=== PATIENT | female | born 1940 | race Caucasian/White ===

== ENCOUNTER 2016-10-17 12:21 | Emergency (ER) | payer MEDICARE ==
--- NOTE | 2016-10-17 13:11 | RAD ---
THREE VIEWS LUMBAR SPINE: History: Fall with low back and left hip. FINDINGS: There is mild superior endplate irregularity of L2 without significant height loss. Mild multilevel endplate degenerative change of the lumbar spine is seen. There is no significant subluxation. Patie nt is rotated on the frontal view limiting evaluation of the alignment. Scattered vascular disease is present within the abdomen. Partially imaged left hip hardware is seen . IMPRESSION: Mild superior endplate irregularity of L2, age indeterminate. Correlate clinically. POS: [facility]
--- NOTE | 2016-10-17 13:51 | RAD ---
AP PELVIS: HISTORY: Left hip pain, fall. FINDINGS/IMPRESSION: There are postop changes of an internally fixed intratrochanteric fracture since the previous exam o f 04/12/14. There is a new fracture involving the left inferior pubic ramus. POS: [facility]
--- NOTE | 2016-10-17 13:55 | RAD ---
LEFT HIP 2 VIEWS: HISTORY: Fall, left hip pain. FINDINGS/IMPRESSION: There are postop changes of a healed intratrochanteric fracture and metallic hardware in good positi on and alignment. There are also plate and screws in the distal left femur. The left femur is othe rwise intact. There is a mew fracture involving the left inferior pubic ramus. POS: [facility]
== END 2016-10-17 13:45 | disposition home or self-care (01) ==
LOC: BURERS 12:21
DX: S32.592A Other specified fracture of left pubis, initial encounter for closed fracture (principal); E11.9 Type 2 diabetes mellitus without complications; E78.5 Hyperlipidemia, unspecified; I10 Essential (primary) hypertension; F32.9 Major depressive disorder, single episode, unspecified; F41.9 Anxiety disorder, unspecified; Z79.2 Long term (current) use of antibiotics; Z79.4 Long term (current) use of insulin; Z79.82 Long term (current) use of aspirin; Z79.899 Other long term (current) drug therapy; W17.89XA Other fall from one level to another, initial encounter
CPT/HCPCS: 72100; 72170

== ENCOUNTER 2019-05-17 15:45 | Inpatient (IN) | payer MEDICARE ==
[2019-05-17] MEDS ORDERED: Polyethylene Glycol 3350 17 GM Packet PO PRN (16:32)
[2019-05-17] MEDS ORDERED: Dextrose 5% in Water 1,000 ML IV PRN (16:40)
[2019-05-17] MEDS ORDERED: Dextrose 50% Abboject 50 ML SYRINGE SLOW IVP PRN (16:40)
[2019-05-17] MEDS ORDERED: Lidocaine Patch Removal TOP PRN (16:55)
[2019-05-17 17:25] VITALS: BMI 25.2
[2019-05-17] MEDS: HumaLOG 300 UNITS/3 ML VIAL SC PRN ×2 (18:10→21:47)
[2019-05-17] MEDS ORDERED: Calcium Carbonate + Vit D 500 MG TAB PO SCH (21:00)
[2019-05-17] MEDS ORDERED: Lidocaine 5% Patch TD PRN (21:00)
--- NOTE | 2019-05-17 21:11 | HP ---
CHIEF COMPLAINT: Need for skilled rehab. HISTORY OF PRESENT ILLNESS: Ms. Peña is a 78-year-old female with past medical history of osteoporosis, rheumatoid arthritis, on chronic steroids and Humira, who presented to the emergency department with severe acute low back pain and was found to have L1 compression fracture shown by lumbar CT with mild burst. She had this back pain for approximately 1 week that was severe and during her hospitalization at [facility], May 12 through today, she was evaluated by Neurosurgery and recommended a TLSO brace. She was participating in physical therapy there and has been transferred here for further PT and OT. During her hospitalization, the CT scan also showed an exophytic right renal lesion. A nonemergent right renal ultrasound was recommended to be followed by her primary care physician. She was discharged with the TLSO brace to be worn while upright and Tylenol, lidocaine patch for pain control along with [place]. PAST MEDICAL HISTORY: 1. L1 burst compression fracture as above. 2. Right renal exophytic lesion on CT scan as above. 3. Osteoporosis. 4. Rheumatoid arthritis, on chronic steroids and Humira. 5. Osteopenia with moderate lumbar spondylosis. 6. Type 2 diabetes, insulin dependent. 7. Hyperlipidemia. 8. Hypertension. 9. Hypothyroidism. 10. Degenerative joint disease. 11. Hyponatremia. 12. Urinary retention. 13. Pulmonary fibrosis, thought to be secondary to rheumatoid arthritis, followed by Pulmonology and confirmed with PFTs. 14. 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 15. History of ischemic colitis. PAST SURGICAL HISTORY: 1. Tonsillectomy. 2. Left femur surgery. 3. Ankle surgery. 4. Left hip surgery. 5. Thyroid biopsy. 6. Partial colectomy. ALLERGIES: CIPRO AND LEVAQUIN. FAMILY HISTORY: Denies heart disease or malignancy. SOCIAL HISTORY: Lives at home with her . Ambulates with walker assist. Full code. Makes her own decisions with family help. HOME MEDICATIONS: Please see transfer MAR. REVIEW OF SYSTEMS: All other review of systems was reviewed and found to be negative, except for diarrhea. PHYSICAL EXAMINATION: VITAL SIGNS: Temperature 98.2, pulse 69, respirations 18, O2 saturation 96% on room air, blood pressure 110/66. GENERAL: Well-developed, overweight female, pleasant, alert and oriented x3, in no acute distress. HEENT: Pupils equally round and reactive to light and accommodation, extraocular muscles intact. Nares are patent without discharge. Tongue protrudes in midline. NECK: Supple without lymphadenopathy, thyromegaly, JVD, or bruit. HEART: Regular rate and rhythm. Normal S1, S2. No murmurs, clicks, rubs, or gallops. LUNGS: Good air entry throughout with bibasilar coarse crackles, left greater than right. ABDOMEN: Positive bowel sounds in all four quadrants. Soft, nontender, and nondistended. No masses, guarding, or rebound tenderness. MUSCULOSKELETAL: Tenderness to palpation, mid limb or in area of fracture. EXTREMITIES: No cyanosis or clubbing. 1 mm nonpitting ankle edema. NEUROLOGIC: Cranial nerves 2 through 12 grossly intact without focal deficits. LABORATORY DATA: Last CBC, May 17, which was this a.m., with white count 10.7 and 69% neutrophils, 18% lymphocytes, hemoglobin 12.6, hematocrit 37.6. Sodium 135, potassium 4.2, chloride 97, BUN 20, creatinine 0.69, glucose 171, calcium 9.9. IMAGING STUDIES: 1. Lumbar spine CT scan from May 12 showed mild burst fracture of L1. 2. Exophytic right renal lesion, moderate lumbar spondylosis, severe osteopenia. ASSESSMENT AND PLAN: 1. L1 burst fracture. The patient will be admitted to the fpc unit here for physical and occupational therapy to be using a TLSO brace while upright, followed outpatient by Dr. Mcmullen, to be seen by him in approximately 2 weeks. She will probably be in this brace for about 6 weeks. We will give pain control with her lidocaine patch, Tylenol, and [place] for severe pain. 2. Rheumatoid arthritis, steroid dependent, Humira dependent. We will continue her prednisone. 3. Osteoporosis. The patient will be continued on her calcium, vitamin D, and a multivitamin. 4. Insulin-dependent diabetes mellitus. Her home regimen will be continued and we will place her on Accu-Cheks q.a.c. and at bedtime with Humalog sliding scale, mild and bedtime algorithm and adjust accordingly. 5. Hyperlipidemia. The patient will be continued on her statin. 6. Hypothyroidism. The patient will be continued on her levothyroxine. 7. Gastroesophageal reflux disease. The patient will be continued on her Protonix. 8. Depression. The patient will be continued on her Celexa. 9. Prophylaxis. The patient is already on a PPI. We will add SCDs. 10. Code status, full code. Job ID: [id number]
[2019-05-17] MEDS: Docusate 100 MG CAP PO SCH (21:42)
[2019-05-17] MEDS: predniSONE 10 MG TAB PO SCH (21:42)
[2019-05-17] MEDS: Lantus 1000 UNITS/10 ML VIAL SC SCH (21:48)
[2019-05-17] MEDS: Simvastatin 5 MG TAB PO SCH (21:55)
[2019-05-17] MEDS: Acetaminophen 325 MG TAB PO SCH (21:56)
[2019-05-17] MEDS: DICLOFENAC SODIUM TOP SCH (21:56)
[2019-05-17] MEDS: Lisinopril 10 MG TAB PO SCH (22:04)
[2019-05-17] MEDS: ALPRAZolam 0.5 MG TAB PO PRN (22:05)
[2019-05-18] MEDS: Levothyroxine Sodium 50 MCG TAB PO SCH (06:06)
[2019-05-18] MEDS: HYDROcodone/Acetaminophen 5/325 mg Tablet PO PRN (07:32)
[2019-05-18] MEDS: metFORMIN 500 MG TAB PO SCH (08:53)
[2019-05-18] MEDS: Multivit, Therapeutic 1 TAB PO SCH (08:53)
[2019-05-18] MEDS: Docusate 100 MG CAP PO SCH ×3 (08:53→22:14)
[2019-05-18] MEDS: Calcium Carbonate + Vit D 500 MG TAB PO SCH ×2 (08:54→22:06)
[2019-05-18] MEDS: Acetaminophen 325 MG TAB PO SCH ×3 (08:54→22:05)
[2019-05-18] MEDS: Citalopram 20 MG TAB PO SCH (08:55)
[2019-05-18] MEDS: predniSONE 10 MG TAB PO SCH ×2 (08:55→22:06)
[2019-05-18] MEDS: DICLOFENAC SODIUM TOP SCH ×2 (08:55→22:14)
[2019-05-18] MEDS: (Liraglutide [Victoza 2-Pak] 1.8 MG) SC SCH (08:55)
[2019-05-18] MEDS: HumaLOG 300 UNITS/3 ML VIAL SC PRN ×2 (18:01→22:22)
[2019-05-18] MEDS: Lisinopril 10 MG TAB PO SCH (22:06)
[2019-05-18] MEDS: Simvastatin 5 MG TAB PO SCH (22:07)
[2019-05-18] MEDS: Lantus 1000 UNITS/10 ML VIAL SC SCH (22:21)
[2019-05-19] MEDS: Levothyroxine Sodium 50 MCG TAB PO SCH (05:09)
[2019-05-19] MEDS: Citalopram 20 MG TAB PO SCH (09:32)
[2019-05-19] MEDS: Docusate 100 MG CAP PO SCH ×2 (09:33→20:41)
[2019-05-19] MEDS: metFORMIN 500 MG TAB PO SCH (09:33)
[2019-05-19] MEDS: predniSONE 10 MG TAB PO SCH ×2 (09:33→20:38)
[2019-05-19] MEDS: Multivit, Therapeutic 1 TAB PO SCH (09:33)
[2019-05-19] MEDS: DICLOFENAC SODIUM TOP SCH ×2 (09:34→20:41)
[2019-05-19] MEDS: Acetaminophen 325 MG TAB PO SCH ×3 (09:34→20:38)
[2019-05-19] MEDS: Calcium Carbonate + Vit D 500 MG TAB PO SCH ×2 (09:35→20:42)
[2019-05-19] MEDS: (Liraglutide [Victoza 2-Pak] 1.8 MG) SC SCH (09:41)
[2019-05-19] MEDS: Lisinopril 10 MG TAB PO SCH (20:42)
[2019-05-19] MEDS: Simvastatin 5 MG TAB PO SCH (20:42)
[2019-05-19] MEDS: ALPRAZolam 0.5 MG TAB PO PRN (20:43)
[2019-05-19] MEDS: Lantus 1000 UNITS/10 ML VIAL SC SCH (20:45)
[2019-05-19] MEDS: HumaLOG 300 UNITS/3 ML VIAL SC PRN (20:47)
[2019-05-20] MEDS: Levothyroxine Sodium 50 MCG TAB PO SCH (04:56)
[2019-05-20] MEDS: (Liraglutide [Victoza 2-Pak] 1.8 MG) SC SCH (08:36)
[2019-05-20] MEDS: Acetaminophen 325 MG TAB PO SCH ×3 (08:43→20:36)
[2019-05-20] MEDS: metFORMIN 500 MG TAB PO SCH (08:44)
[2019-05-20] MEDS: Docusate 100 MG CAP PO SCH ×2 (08:44→20:36)
[2019-05-20] MEDS: Calcium Carbonate + Vit D 500 MG TAB PO SCH ×2 (08:44→20:38)
[2019-05-20] MEDS: predniSONE 10 MG TAB PO SCH ×2 (08:45→20:37)
[2019-05-20] MEDS: Citalopram 20 MG TAB PO SCH (08:46)
[2019-05-20] MEDS: Multivit, Therapeutic 1 TAB PO SCH (08:46)
[2019-05-20] MEDS: DICLOFENAC SODIUM TOP SCH ×2 (08:47→20:35)
[2019-05-20] MEDS: HYDROcodone/Acetaminophen 5/325 mg Tablet PO PRN (08:50)
[2019-05-20 12:10] LABS: Bilirubin Negative (Negative); Blood, Urine Moderate (Negative); Clarity Turbid (Clear); Glucose, Urine (Dipstick) Negative (Negative); Leukocyte Moderate (Negative); Nitrite Positive (Negative); Protein, Urine (Dipstick) 100 mg/dL (Neg-Trace); Urobilinogen 0.2 mg/dL (Less than 2)
[2019-05-20 12:29] LABS: Bacteria/HPF 3+ HPF (None Seen); Oval Fat Bodies/HPF 1+ HPF (None Seen); Squamous Epithelial 0-3 HPF (0-3); Transitional Epithelial 0-3 HPF (None Seen); WBC/HPF Greater Than 50 HPF (0-3)
[2019-05-20] MEDS: Sulfameth/Trimethoprim DS 800-160mg TAB PO SCH (20:36)
[2019-05-20] MEDS: Simvastatin 5 MG TAB PO SCH (20:38)
[2019-05-20] MEDS: ALPRAZolam 0.5 MG TAB PO PRN (20:39)
[2019-05-20] MEDS: Lisinopril 10 MG TAB PO SCH (20:47)
[2019-05-20] MEDS: Lantus 1000 UNITS/10 ML VIAL SC SCH (20:50)
[2019-05-20] MEDS: HumaLOG 300 UNITS/3 ML VIAL SC PRN (20:58)
[2019-05-21] MEDS: Levothyroxine Sodium 50 MCG TAB PO SCH (05:09)
[2019-05-21] MEDS: Docusate 100 MG CAP PO SCH ×2 (08:33→21:17)
[2019-05-21] MEDS: metFORMIN 500 MG TAB PO SCH (08:33)
[2019-05-21] MEDS: Multivit, Therapeutic 1 TAB PO SCH (08:34)
[2019-05-21] MEDS: Sulfameth/Trimethoprim DS 800-160mg TAB PO SCH ×2 (08:35→21:14)
[2019-05-21] MEDS: Calcium Carbonate + Vit D 500 MG TAB PO SCH ×2 (08:35→21:15)
[2019-05-21] MEDS: Citalopram 20 MG TAB PO SCH (08:35)
[2019-05-21] MEDS: Acetaminophen 325 MG TAB PO SCH ×3 (08:35→21:14)
[2019-05-21] MEDS: predniSONE 10 MG TAB PO SCH ×2 (08:35→21:15)
[2019-05-21] MEDS: (Liraglutide [Victoza 2-Pak] 1.8 MG) SC SCH (08:36)
[2019-05-21] MEDS: DICLOFENAC SODIUM TOP SCH ×2 (08:36→21:18)
[2019-05-21] MEDS: ALPRAZolam 0.5 MG TAB PO SCH (21:14)
[2019-05-21] MEDS: Simvastatin 5 MG TAB PO SCH (21:15)
[2019-05-21] MEDS: Lisinopril 10 MG TAB PO SCH (21:15)
[2019-05-21] MEDS: Lantus 1000 UNITS/10 ML VIAL SC SCH (21:16)
[2019-05-21] MEDS: HumaLOG 300 UNITS/3 ML VIAL SC PRN (21:18)
[2019-05-22] MEDS: Levothyroxine Sodium 50 MCG TAB PO SCH (05:59)
[2019-05-22] MEDS: predniSONE 10 MG TAB PO SCH ×2 (08:49→20:31)
[2019-05-22] MEDS: Sulfameth/Trimethoprim DS 800-160mg TAB PO SCH ×2 (08:51→20:32)
[2019-05-22] MEDS: metFORMIN 500 MG TAB PO SCH (08:51)
[2019-05-22] MEDS: Calcium Carbonate + Vit D 500 MG TAB PO SCH ×2 (08:51→20:28)
[2019-05-22] MEDS: Acetaminophen 325 MG TAB PO SCH ×3 (08:51→20:28)
[2019-05-22] MEDS: Docusate 100 MG CAP PO SCH ×2 (08:51→20:42)
[2019-05-22] MEDS: Citalopram 20 MG TAB PO SCH (08:51)
[2019-05-22] MEDS: Multivit, Therapeutic 1 TAB PO SCH (08:51)
[2019-05-22] MEDS: DICLOFENAC SODIUM TOP SCH ×2 (08:53→20:42)
[2019-05-22] MEDS: (Liraglutide [Victoza 2-Pak] 1.8 MG) SC SCH (08:55)
[2019-05-22] MEDS: Metamucil PACK PO SCH (10:38)
[2019-05-22] MEDS: Simvastatin 5 MG TAB PO SCH (20:29)
[2019-05-22] MEDS: ALPRAZolam 0.5 MG TAB PO SCH (20:29)
[2019-05-22] MEDS: Lisinopril 10 MG TAB PO SCH (20:32)
[2019-05-22] MEDS: Lantus 1000 UNITS/10 ML VIAL SC SCH (20:38)
[2019-05-23] MEDS: Levothyroxine Sodium 50 MCG TAB PO SCH (05:44)
[2019-05-23] MEDS: Citalopram 20 MG TAB PO SCH (09:12)
[2019-05-23] MEDS: predniSONE 10 MG TAB PO SCH (09:13)
[2019-05-23] MEDS: HYDROcodone/Acetaminophen 5/325 mg Tablet PO PRN (09:14)
[2019-05-23] MEDS: Calcium Carbonate + Vit D 500 MG TAB PO SCH ×2 (09:15→20:07)
[2019-05-23] MEDS: Acetaminophen 325 MG TAB PO SCH ×3 (09:15→20:07)
[2019-05-23] MEDS: Sulfameth/Trimethoprim DS 800-160mg TAB PO SCH ×2 (09:15→20:07)
[2019-05-23] MEDS: Multivit, Therapeutic 1 TAB PO SCH (09:15)
[2019-05-23] MEDS: metFORMIN 500 MG TAB PO SCH (09:15)
[2019-05-23] MEDS: Docusate 100 MG CAP PO SCH ×2 (09:17→20:08)
[2019-05-23] MEDS: Metamucil PACK PO SCH (09:18)
[2019-05-23] MEDS: (Liraglutide [Victoza 2-Pak] 1.8 MG) SC SCH (09:18)
[2019-05-23] MEDS: DICLOFENAC SODIUM TOP SCH ×2 (09:24→20:30)
[2019-05-23] MEDS: HumaLOG 300 UNITS/3 ML VIAL SC PRN ×2 (12:41→20:13)
[2019-05-23] MEDS: Simvastatin 5 MG TAB PO SCH (20:07)
[2019-05-23] MEDS: Lisinopril 10 MG TAB PO SCH (20:07)
[2019-05-23] MEDS: ALPRAZolam 0.5 MG TAB PO SCH (20:07)
[2019-05-23] MEDS: Lantus 1000 UNITS/10 ML VIAL SC SCH (20:08)
[2019-05-24] MEDS: Levothyroxine Sodium 50 MCG TAB PO SCH (06:23)
[2019-05-24] MEDS ORDERED: predniSONE 10 MG TAB PO SCH (09:00)
[2019-05-24] MEDS: HYDROcodone/Acetaminophen 5/325 mg Tablet PO PRN (09:54)
[2019-05-24] MEDS: Calcium Carbonate + Vit D 500 MG TAB PO SCH ×2 (09:56→21:19)
[2019-05-24] MEDS: Sulfameth/Trimethoprim DS 800-160mg TAB PO SCH ×2 (09:56→21:19)
[2019-05-24] MEDS: metFORMIN 500 MG TAB PO SCH (09:56)
[2019-05-24] MEDS: Multivit, Therapeutic 1 TAB PO SCH (09:56)
[2019-05-24] MEDS: Citalopram 20 MG TAB PO SCH (09:57)
[2019-05-24] MEDS: Acetaminophen 325 MG TAB PO SCH ×3 (09:58→21:19)
[2019-05-24] MEDS: Docusate 100 MG CAP PO SCH ×2 (09:58→21:19)
[2019-05-24] MEDS: DICLOFENAC SODIUM TOP SCH (09:58)
[2019-05-24] MEDS: Metamucil PACK PO SCH (09:58)
[2019-05-24] MEDS: (Liraglutide [Victoza 2-Pak] 1.8 MG) SC SCH (09:58)
[2019-05-24] MEDS: HumaLOG 300 UNITS/3 ML VIAL SC PRN ×2 (18:54→21:23)
[2019-05-24] MEDS: Lantus 1000 UNITS/10 ML VIAL SC SCH (21:18)
[2019-05-24] MEDS: Lisinopril 10 MG TAB PO SCH (21:18)
[2019-05-24] MEDS: ALPRAZolam 0.5 MG TAB PO SCH (21:19)
[2019-05-24] MEDS: Simvastatin 5 MG TAB PO SCH (21:19)
[2019-05-25] MEDS: Levothyroxine Sodium 50 MCG TAB PO SCH (06:03)
[2019-05-25] MEDS: Citalopram 20 MG TAB PO SCH (09:23)
[2019-05-25] MEDS: Sulfameth/Trimethoprim DS 800-160mg TAB PO SCH ×2 (09:23→20:31)
[2019-05-25] MEDS: Multivit, Therapeutic 1 TAB PO SCH (09:23)
[2019-05-25] MEDS: Acetaminophen 325 MG TAB PO SCH ×3 (09:24→20:32)
[2019-05-25] MEDS: metFORMIN 500 MG TAB PO SCH (09:25)
[2019-05-25] MEDS: Calcium Carbonate + Vit D 500 MG TAB PO SCH ×2 (09:26→20:32)
[2019-05-25] MEDS: PREDNISONE 2.5 MG PO SCH (09:29)
[2019-05-25] MEDS: Docusate 100 MG CAP PO SCH ×2 (09:31→20:39)
[2019-05-25] MEDS: Metamucil PACK PO SCH (09:58)
[2019-05-25] MEDS: HumaLOG 300 UNITS/3 ML VIAL SC PRN (18:11)
[2019-05-25] MEDS: ALPRAZolam 0.5 MG TAB PO SCH (20:32)
[2019-05-25] MEDS: Lisinopril 10 MG TAB PO SCH (20:33)
[2019-05-25] MEDS: Simvastatin 5 MG TAB PO SCH (20:33)
[2019-05-25] MEDS: Lantus 1000 UNITS/10 ML VIAL SC SCH (20:38)
[2019-05-26] MEDS: Levothyroxine Sodium 50 MCG TAB PO SCH (05:40)
[2019-05-26] MEDS ORDERED: (Adalimumab [Humira] 40 MG) SC SCH (09:00)
[2019-05-26] MEDS: Sulfameth/Trimethoprim DS 800-160mg TAB PO SCH ×2 (09:10→20:43)
[2019-05-26] MEDS: Multivit, Therapeutic 1 TAB PO SCH (09:10)
[2019-05-26] MEDS: metFORMIN 500 MG TAB PO SCH (09:10)
[2019-05-26] MEDS: Docusate 100 MG CAP PO SCH ×2 (09:11→20:44)
[2019-05-26] MEDS: Citalopram 20 MG TAB PO SCH (09:11)
[2019-05-26] MEDS: Calcium Carbonate + Vit D 500 MG TAB PO SCH ×2 (09:17→20:43)
[2019-05-26] MEDS: Acetaminophen 325 MG TAB PO SCH ×3 (09:17→20:42)
[2019-05-26] MEDS: PREDNISONE 2.5 MG PO SCH (09:19)
[2019-05-26] MEDS: Metamucil PACK PO SCH (09:42)
[2019-05-26] MEDS: HumaLOG 300 UNITS/3 ML VIAL SC PRN (20:41)
[2019-05-26] MEDS: Lantus 1000 UNITS/10 ML VIAL SC SCH (20:42)
[2019-05-26] MEDS: Simvastatin 5 MG TAB PO SCH (20:43)
[2019-05-26] MEDS: Lisinopril 10 MG TAB PO SCH (20:43)
[2019-05-26] MEDS: ALPRAZolam 0.5 MG TAB PO SCH (20:43)
[2019-05-27] MEDS: Levothyroxine Sodium 50 MCG TAB PO SCH (05:59)
[2019-05-27] MEDS: Multivit, Therapeutic 1 TAB PO SCH (09:33)
[2019-05-27] MEDS: Sulfameth/Trimethoprim DS 800-160mg TAB PO SCH (09:34)
[2019-05-27] MEDS: Acetaminophen 325 MG TAB PO SCH ×3 (09:34→20:16)
[2019-05-27] MEDS: Citalopram 20 MG TAB PO SCH (09:34)
[2019-05-27] MEDS: Calcium Carbonate + Vit D 500 MG TAB PO SCH ×2 (09:34→20:17)
[2019-05-27] MEDS: Docusate 100 MG CAP PO SCH ×2 (09:35→20:18)
[2019-05-27] MEDS: metFORMIN 500 MG TAB PO SCH (09:35)
[2019-05-27] MEDS: Metamucil PACK PO SCH (09:43)
[2019-05-27] MEDS: PREDNISONE 2.5 MG PO SCH (09:44)
[2019-05-27] MEDS: HumaLOG 300 UNITS/3 ML VIAL SC PRN (18:01)
[2019-05-27] MEDS: Simvastatin 5 MG TAB PO SCH (20:16)
[2019-05-27] MEDS: Lantus 1000 UNITS/10 ML VIAL SC SCH (20:16)
[2019-05-27] MEDS: ALPRAZolam 0.5 MG TAB PO SCH (20:17)
[2019-05-27] MEDS: Lisinopril 10 MG TAB PO SCH (20:17)
[2019-05-28] MEDS: Levothyroxine Sodium 50 MCG TAB PO SCH (06:05)
[2019-05-28] MEDS: Acetaminophen 325 MG TAB PO SCH ×3 (08:52→20:47)
[2019-05-28] MEDS: Multivit, Therapeutic 1 TAB PO SCH (08:52)
[2019-05-28] MEDS: Citalopram 20 MG TAB PO SCH (08:52)
[2019-05-28] MEDS: metFORMIN 500 MG TAB PO SCH (08:54)
[2019-05-28] MEDS: Calcium Carbonate + Vit D 500 MG TAB PO SCH ×2 (08:54→20:47)
[2019-05-28] MEDS: Docusate 100 MG CAP PO SCH ×2 (08:54→20:47)
[2019-05-28] MEDS: Metamucil PACK PO SCH (09:02)
[2019-05-28] MEDS: ALPRAZolam 0.5 MG TAB PO PRN (09:04)
[2019-05-28] MEDS: PREDNISONE 2.5 MG PO SCH (09:06)
[2019-05-28] MEDS: HumaLOG 300 UNITS/3 ML VIAL SC PRN ×2 (17:29→20:45)
[2019-05-28] MEDS: Lantus 1000 UNITS/10 ML VIAL SC SCH (20:44)
[2019-05-28] MEDS: Simvastatin 5 MG TAB PO SCH (20:46)
[2019-05-28] MEDS: ALPRAZolam 0.5 MG TAB PO SCH (20:46)
[2019-05-28] MEDS: Lisinopril 10 MG TAB PO SCH (20:47)
[2019-05-29] MEDS: Levothyroxine Sodium 50 MCG TAB PO SCH (05:55)
[2019-05-29] MEDS: Acetaminophen 325 MG TAB PO SCH ×3 (09:13→21:04)
[2019-05-29] MEDS: Calcium Carbonate + Vit D 500 MG TAB PO SCH ×2 (09:15→21:06)
[2019-05-29] MEDS: metFORMIN 500 MG TAB PO SCH (09:15)
[2019-05-29] MEDS: Citalopram 20 MG TAB PO SCH (09:15)
[2019-05-29] MEDS: Multivit, Therapeutic 1 TAB PO SCH (09:15)
[2019-05-29] MEDS: PREDNISONE 2.5 MG PO SCH (09:21)
[2019-05-29] MEDS: Docusate 100 MG CAP PO SCH ×2 (09:22→21:07)
[2019-05-29] MEDS: Metamucil PACK PO SCH (09:42)
[2019-05-29] MEDS: ALPRAZolam 0.5 MG TAB PO SCH (21:05)
[2019-05-29] MEDS: Simvastatin 5 MG TAB PO SCH (21:05)
[2019-05-29] MEDS: Lisinopril 10 MG TAB PO SCH (21:06)
[2019-05-29] MEDS: Lantus 1000 UNITS/10 ML VIAL SC SCH (21:07)
[2019-05-29] MEDS: HumaLOG 300 UNITS/3 ML VIAL SC PRN (21:08)
[2019-05-30] MEDS: Levothyroxine Sodium 50 MCG TAB PO SCH (05:58)
[2019-05-30 06:22] VITALS: TEMP 98.3
[2019-05-30] MEDS: Acetaminophen 325 MG TAB PO SCH (08:28)
[2019-05-30] MEDS: Calcium Carbonate + Vit D 500 MG TAB PO SCH (08:28)
[2019-05-30] MEDS: Multivit, Therapeutic 1 TAB PO SCH (08:28)
[2019-05-30] MEDS: metFORMIN 500 MG TAB PO SCH (08:28)
[2019-05-30] MEDS: Citalopram 20 MG TAB PO SCH (08:30)
[2019-05-30] MEDS: Docusate 100 MG CAP PO SCH (08:30)
[2019-05-30] MEDS: ALPRAZolam 0.5 MG TAB PO PRN (08:33)
[2019-05-30] MEDS: PREDNISONE 2.5 MG PO SCH (08:35)
[2019-05-30] MEDS ORDERED: Cholecalciferol (Vitamin D3) 400 UNITS TAB ONE (08:52)
[2019-05-30] MEDS: Metamucil PACK PO SCH (09:00)
[2019-05-30 11:43] VITALS: BP 131/62
--- NOTE | 2019-05-30 13:39 | DIS ---
DATE OF ADMISSION: 05/17/2019 DATE OF DISCHARGE: 05/30/2019 ADMISSION DIAGNOSES: 1. L1 burst fracture. 2. Rheumatoid arthritis. 3. Osteoporosis. 4. Insulin-dependent diabetes mellitus. 5. Hyperlipidemia. 6. Hypothyroidism. 7. Gastroesophageal reflux disease. 8. Depression. 9. Anxiety. DISCHARGE DIAGNOSES: 1. L1 burst fracture. 2. Rheumatoid arthritis. 3. Osteoporosis. 4. Insulin-dependent diabetes mellitus. 5. Hyperlipidemia. 6. Hypothyroidism. 7. Gastroesophageal reflux disease. 8. Depression. 9. Anxiety. 10. Escherichia coli urinary tract infection, pansensitive, and an episode of urinary retention. 11. Right renal lesion on CT scan and is exophytic. HISTORY AND PHYSICAL: Please see dictated report from the day of admission. SNF COURSE: Ms. Peña is a 78-year-old female, who was admitted to the skilled unit after an L1 burst fracture secondary to compression, osteoporosis with steroid dependency due to long-standing rheumatoid arthritis. At [facility], she was recommended TLSO brace and wanted to follow up with Dr. Mcmullen as an outpatient. She has called his office and expects a call shortly for scheduling. She was instructed to wear the TLSO brace while ambulating and any time she is upright more than 30 degrees including supine positioning. She has done well with that and her pain is now well controlled without the need of pain pills. Lidocaine patch topically has helped and so we will order this on discharge. Regarding the right renal exophytic lesion on CT scan, she is recommended to have an ultrasound with her PCP as an outpatient for further evaluation. Due to her osteoporosis, has recommended the patient go ahead with the steroid taper that was instructed by her highway worker. She is currently down from 5 mg twice daily to 2.5 mg three tablets daily, which is 7.5 mg total dose. She will go down to 2 tablets, which will be 5 mg total dose on June 06, 2019, and continue the taper according to the prescription that was written by Rheumatology. In addition, the patient complained of chronic diarrhea during her hospitalization. Her stool softener and laxatives were stopped. We thought that she possibly could benefit from fiber or even Questran or cholestyramine secondary to her history of previous colectomy and she may be dealing with short gut. The fiber was not effective during the hospitalization and she will discuss the possibility of cholestyramine with her PCP as an outpatient. In addition, the pantoprazole for her GERD and the metformin for her diabetes may be contributing. Consider tapering the PPI or an alternative agent as well as changing the metformin to an extended release version to see if this might help improve. The patient has a history of osteoporosis and will continue her calcium and vitamin D supplements as an outpatient. She may be a candidate for bisphosphonate or other therapy. This may not have been deemed appropriate secondary to her GERD in the past. The patient did have some urinary burning, frequency, and incontinence during her hospitalization, and urinalysis was positive for gram-negative rods, which turned out to be E coli, which were pansensitive. This was treated effectively with Bactrim with resolution of her symptoms. In addition, she did have one episode of incomplete emptying symptoms with urinary retention, documented greater than 500 mL per bladder scan, which was removed with a straight in and out cath. Subsequent postvoid residuals have been all less than 150 mL. DISPOSITION: Discharged to home with standard home health for nursing home, PT and OT. She will follow up with her primary care provider in approximately 3 days and with Neurosurgery in approximately 2 weeks. MEDICATIONS: 1. Prednisone 2.5 mg three tablets p.o. q.a.m. until June 06, at which point, further taper as per her home Rx bottle. 2. [place] 5/325 one p.o. q.6 hours p.r.n. severe pain. 3. Diclofenac one application to the affected area b.i.d. 4. Citalopram 20 mg p.o. daily. 5. Humira 40 mg subcu q.14 days. 6. Pantoprazole 20 mg daily. 7. Tresiba 40 units subcu at bedtime. 8. Calcium 600+vitamin D 1 p.o. b.i.d. 9. Lovastatin 20 mg p.o. q.p.m. 10. Lisinopril 10 mg p.o. at bedtime. 11. Levothyroxine 75 mcg p.o. q.a.m. 12. Vitamin D3 5000 units p.o. daily. 13. Alprazolam 0.25 mg p.o. t.i.d. p.r.n. anxiety. 14. Metformin 500 mg p.o. daily. 15. Victoza 1.8 mg subcu daily. 16. Theragran one p.o. daily. 17. Tylenol 650 mg p.o. t.i.d. 18. Lidocaine 5% transdermal patch, one patch to affected area q.12 hours, removed after 12 hours. Job ID: [id number]
[2019-06-07] MEDS ORDERED: predniSONE 10 MG TAB PO SCH (09:00)
[2019-06-07] MEDS ORDERED: PREDNISONE 2.5 MG PO SCH (09:00)
[2019-06-21] MEDS ORDERED: PREDNISONE 2.5 MG PO SCH (09:00)
[2019-06-21] MEDS ORDERED: predniSONE 10 MG TAB PO SCH (09:00)
== END 2019-05-30 13:43 | disposition home or self-care (01) | DRG 560 ==
LOC: BURMED 15:45
PROVIDERS: ADMIT Family Medicine; ATTEND Family Medicine
DX: S32.011D Stable burst fracture of first lumbar vertebra, subsequent encounter for fracture with routine healing (principal); N39.0 Urinary tract infection, site not specified; M06.9 Rheumatoid arthritis, unspecified; E11.9 Type 2 diabetes mellitus without complications; E78.5 Hyperlipidemia, unspecified; I10 Essential (primary) hypertension; Z90.89 Acquired absence of other organs; Z90.49 Acquired absence of other specified parts of digestive tract; Z88.8 Allergy status to other drugs, medicaments and biological substances; Z98.890 Other specified postprocedural states; E03.9 Hypothyroidism, unspecified; F32.9 Major depressive disorder, single episode, unspecified; K21.9 Gastro-esophageal reflux disease without esophagitis; M81.0 Age-related osteoporosis without current pathological fracture; F41.9 Anxiety disorder, unspecified; B96.20 Unspecified Escherichia coli [E. coli] as the cause of diseases classified elsewhere; Z79.4 Long term (current) use of insulin; Z79.52 Long term (current) use of systemic steroids; M47.816 Spondylosis without myelopathy or radiculopathy, lumbar region; E66.3 Overweight; N28.89 Other specified disorders of kidney and ureter; K52.9 Noninfective gastroenteritis and colitis, unspecified
CPT/HCPCS: 36416; 81001; 87077; 87086; 87186; A4353; J1815; J7512

== ENCOUNTER 2020-01-13 13:21 | Inpatient (IN) | payer MEDICARE ==
[2020-01-13] MEDS ORDERED: Ferrous Sulfate 325 MG TAB PO SCH (17:45)
[2020-01-13] MEDS: Ferrous Sulfate 325 MG TAB PO SCH (18:18)
[2020-01-13] MEDS: Cyclobenzaprine 10 MG TAB PO PRN (18:22)
[2020-01-13] MEDS: traMADol HCl 50 MG TAB PO SCH (20:28)
[2020-01-13] MEDS: Acetaminophen 500 MG TAB PO PRN (20:28)
[2020-01-13] MEDS ORDERED: Non-Formulary Item 1 EACH (Insulin Degludec [Tresiba Flextouch U-100] 40 UNIT) SQ SCH (21:00)
[2020-01-13] MEDS: Lisinopril 10 MG TAB PO SCH (21:43)
[2020-01-13] MEDS: Lantus 1000 UNITS/10 ML VIAL SC SCH (21:43)
[2020-01-13] MEDS: Simvastatin 5 MG TAB PO SCH (21:43)
[2020-01-13] MEDS: Gabapentin 100 MG CAP PO PRN (21:43)
[2020-01-13] MEDS: Citalopram 20 MG TAB PO SCH (21:43)
[2020-01-13] MEDS: Aspirin 81 mg Enteric Coated Tablet PO SCH (21:43)
[2020-01-14] MEDS: traMADol HCl 50 MG TAB PO SCH ×4 (02:46→22:34)
[2020-01-14] MEDS: Levothyroxine Sodium 25 MCG TAB PO SCH (05:16)
[2020-01-14] MEDS: Acetaminophen 500 MG TAB PO PRN ×3 (05:25→23:23)
[2020-01-14] MEDS: Cyclobenzaprine 10 MG TAB PO PRN ×2 (05:25→23:23)
[2020-01-14] MEDS: Aspirin 81 mg Enteric Coated Tablet PO SCH ×2 (08:01→22:33)
[2020-01-14] MEDS: Cholecalciferol 1,000 UNITS (25 MCG) TAB PO SCH (08:02)
[2020-01-14] MEDS: metFORMIN 500 MG TAB PO SCH (08:02)
[2020-01-14] MEDS: Ascorbic Acid 500 mg Chewable Tablet PO SCH (08:02)
[2020-01-14] MEDS: Ferrous Sulfate 325 MG TAB PO SCH (17:43)
[2020-01-14] MEDS: Lantus 1000 UNITS/10 ML VIAL SC SCH (22:33)
[2020-01-14] MEDS: Lisinopril 10 MG TAB PO SCH (22:33)
[2020-01-14] MEDS: Citalopram 20 MG TAB PO SCH (22:33)
[2020-01-14] MEDS: Simvastatin 5 MG TAB PO SCH (22:33)
[2020-01-14] MEDS: Gabapentin 100 MG CAP PO PRN (23:47)
[2020-01-15] MEDS: ALPRAZolam 0.5 MG TAB PO PRN (00:24)
[2020-01-15] MEDS: traMADol HCl 50 MG TAB PO SCH ×4 (01:26→21:03)
[2020-01-15] MEDS: Levothyroxine Sodium 25 MCG TAB PO SCH (05:24)
[2020-01-15] MEDS: Acetaminophen 500 MG TAB PO PRN ×2 (05:25→18:20)
--- NOTE | 2020-01-15 08:29 | HP ---
HISTORY OF PRESENT ILLNESS: 79-year-old white female, admitted to [facility] for continued rehab and physical therapy of left displaced tibial plateau fracture sustained 01/07/20 from a same-level trip fall. Her feet got tangled up in her walker. She was taken to the OR on 01/07 for a closed reduction long-leg splint. Her bone quality disqualified her for surgical fixation with hardware. PAST MEDICAL HISTORY: Osteopenia with history of multiple vertebral fractures, rheumatoid arthritis, DM type 2, hypertension, hyperlipidemia, hypothyroidism, degenerative joint disease, Chronic Anemia PAST SURGICAL HISTORY: Tonsillectomy, ORIF left femur x2, ankle surgery, colectomy, status post ischemic colitis. SOCIAL HISTORY: Negative for alcohol or recreational drugs. Nonsmoker. ALLERGIES: QUINOLONES CURRENT MEDICATIONS: 1. Acetaminophen 1000 q.6 p.r.n. pain. 2. Gabapentin 100 mg t.i.d. 3. Lisinopril 10 mg daily. 4. Citalopram 20 mg daily. 5. Alprazolam 0.25 mg t.i.d. p.r.n. 6. Metformin 500 mg daily. 7. MiraLAX p.o. daily p.r.n. constipation. 8. Docusate sodium 2 tabs b.i.d. p.r.n. constipation. 9. Flexeril 5 mg p.o. t.i.d. p.r.n. muscle spasm. 10. Simvastatin 10 mg daily. 11. Lantus 40 units at bedtime subcu. 12. Ferrous sulfate 325 b.i.d. with meals. 13. Victoza 1.8 mg daily. 14. Rinvoq 15 mg as directed. 15. Aspirin enteric-coated 81 mg b.i.d. 16. Tramadol 100 mg scheduled q.i.d. 17. Protonix 40 mg p.o. daily. 18. Levothyroxine 75 mcg daily. 19. Vitamin C 500 mg daily. 20. Vitamin D3 5000 units daily. REVIEW OF SYSTEMS: CONSTITUTIONAL: Denies fever, chills, sweats, appetite change, weight loss or gain. EYES: Denies vision changes, eye pain, discharge or redness. ENT: Denies hearing loss, ear pain, URI symptoms or sore throat. RESPIRATORY: Denies cough, dyspnea, wheeze, asthma. Reports pulmonary fibrosis related to rheumatoid. CV: Denies chest pain, dyspnea, PND, orthopnea, edema, claudication. GI: Denies constipation, diarrhea, indigestion, dysphagia, food allergies or intolerances. : Denies frequency, dysuria, nocturia, or incontinence. MUSCULOSKELETAL: Complains of muscle weakness, left leg. Reports multiple joint pains and swelling. SKIN: Denies rash or lesions. HEMATOLOGY AND LYMPHATIC: Denies anemia, history of blood clots or blood cancer. Reports bruises easily. NEUROLOGIC: Denies dizziness, syncope, headache, weakness, ataxia, confusion. PSYCHIATRIC: Reports history of anxiety and sleep disturbance. PHYSICAL EXAMINATION: VITAL SIGNS: Temperature 98.7, heart rate 91, respirations 18, she is 96% on 1 L nasal cannula, blood pressure 125/58. GENERAL APPEARANCE: Alert, oriented x3, well appearing, no acute distress. She is frail and in bed. EYES: Conjunctiva clear. No discharge. ORAL CAVITY: Moist mucous membranes. No ulcer or lesion, normal dentition. NECK: Thyroid supple. No lymphadenopathy. No JVD. No carotid bruit. No thyromegaly. CV: Regular rate and rhythm. Normal S1, S2. No murmur. RESPIRATIONS: Good air entry bilaterally. Mild basilar crackles bilaterally. ABDOMEN: Soft, nontender. No mass or megaly. Normal bowel sounds. NEUROLOGIC: CN II through XII grossly intact. Motor function is diminished. Decreased coordination and strength. Generalized weakness. SKIN: Normal. No rash. PSYCHIATRIC: Appropriate mood, affect. Normal speech. No thought disorder. LABORATORY DATA: WBC 7.4, H and H is 8.2 and 23.7, platelets are 146. INR 1. Her POC glucose range is 59 to 139 since arrival. Sodium 141, potassium 4.2, chloride 105, carbon dioxide 28, BUN 33, creatinine 0.8, glucose 119, calcium 8.4. COVID not detected on 01/07/20. ASSESSMENT: 1. Fall. 2. Left tibial plateau fracture, displaced. 3. Closed reduction, left long-leg splint. 4. Rheumatoid arthritis. 5. Osteopenia. 6. Diabetes mellitus type 2. 7. Hypertension. 8. Chronic anemia. PLAN: Admit to correction unit for continued OT and PT, non-weightbearing Left leg at this time. Continue diabetic diet, all home medications. Maximize pain management. Continue iron. Job ID: [id number] [email or web address]
[2020-01-15] MEDS: Ferrous Sulfate 325 MG TAB PO SCH ×2 (08:42→17:19)
[2020-01-15] MEDS: Aspirin 81 mg Enteric Coated Tablet PO SCH ×2 (08:42→21:03)
[2020-01-15] MEDS: metFORMIN 500 MG TAB PO SCH (08:44)
[2020-01-15] MEDS: Ascorbic Acid 500 mg Chewable Tablet PO SCH (08:44)
[2020-01-15] MEDS: Cholecalciferol 1,000 UNITS (25 MCG) TAB PO SCH (08:45)
[2020-01-15] MEDS: Cyclobenzaprine 10 MG TAB PO PRN (08:50)
[2020-01-15] MEDS: Simvastatin 5 MG TAB PO SCH (21:02)
[2020-01-15] MEDS: Citalopram 20 MG TAB PO SCH (21:02)
[2020-01-15] MEDS: Lantus 1000 UNITS/10 ML VIAL SC SCH (21:03)
[2020-01-15] MEDS: Lisinopril 10 MG TAB PO SCH (21:09)
[2020-01-16] MEDS: traMADol HCl 50 MG TAB PO SCH ×2 (03:06→10:06)
[2020-01-16] MEDS: Acetaminophen 500 MG TAB PO PRN ×2 (05:45→16:58)
[2020-01-16] MEDS: Levothyroxine Sodium 25 MCG TAB PO SCH (05:45)
[2020-01-16] MEDS: Gabapentin 100 MG CAP PO PRN ×2 (05:54→14:04)
[2020-01-16] MEDS: Ascorbic Acid 500 mg Chewable Tablet PO SCH (08:24)
[2020-01-16] MEDS: Aspirin 81 mg Enteric Coated Tablet PO SCH ×2 (08:24→20:15)
[2020-01-16] MEDS: metFORMIN 500 MG TAB PO SCH (08:25)
[2020-01-16] MEDS: Cholecalciferol 1,000 UNITS (25 MCG) TAB PO SCH (08:25)
[2020-01-16] MEDS: Ferrous Sulfate 325 MG TAB PO SCH ×2 (08:25→16:57)
[2020-01-16] MEDS: Cyclobenzaprine 10 MG TAB PO PRN (14:05)
[2020-01-16] MEDS: traMADol HCl 50 MG TAB PO PRN ×2 (14:58→19:39)
[2020-01-16] MEDS ORDERED: HumaLOG 300 UNITS/3 ML VIAL SC PRN (17:08)
[2020-01-16] MEDS ORDERED: Dextrose 5% in Water 1,000 ML IV PRN (17:08)
[2020-01-16] MEDS ORDERED: Dextrose 50% Abboject 50 ML SYRINGE SLOW IVP PRN (17:08)
[2020-01-16 17:28] LABS: Bilirubin Negative (Negative); Blood, Urine Negative (Negative); Glucose, Urine (Dipstick) Negative (Negative); Ketone, Urine 15 mg/dL (Negative); Leukocyte Negative (Negative); Nitrite Positive (Negative); Protein, Urine (Dipstick) 30 mg/dL (Neg-Trace)
[2020-01-16] MEDS: HumaLOG 300 UNITS/3 ML VIAL SC PRN (17:29)
[2020-01-16 17:35] LABS: Clarity Cloudy (Clear); RBC/HPF 0-3 HPF (0-3); Squamous Epithelial 0-3 HPF (0-3); WBC/HPF 0-3 HPF (0-3)
[2020-01-16 17:36] LABS: Bacteria/HPF 4+ HPF (None Seen); Calcium Oxalate Crystals 1+ HPF (None Seen)
[2020-01-16 17:45] LABS: #Basophils 0.1 thou/uL (0.0-0.2); #Eosinphils 0.2 thou/uL (0.0-0.7); #Lymphocytes 1.1 thou/uL (1.20-3.40); %Eosinophils 2.2 % (0.0-10.0); %Lymphocytes 9.4 % (21.0-51.0); %Monocytes 8.6 % (0.0-10.0); %Neutrophils 78.9 % (42.0-75.0); Hemoglobin 8.4 g/dL (12.0-16.0); Mean Corpuscular HGB CONC 31.5 g/dL (32.0-36.0); Mean Corpuscular Hemoglobin 31.7 pg (27.0-31.0); Mean Platelet Volume 6.6 fL (7.4-10.4); Platelet Count 281 thou/uL (130-400); RBC Distribution Width 14.7 % (11.5-14.5); Red Blood Cell (RBC) Count 2.66 mill/uL (4.20-5.40); White Blood Cell (WBC) Count 11.4 thou/uL (4.8-10.8)
[2020-01-16 17:54] LABS: ALT (SGPT) 21 U/L (8-55); AST (SGOT) 23 U/L (5-34); Albumin 3.1 g/dL (3.4-4.8); Alkaline Phosphatase 61 U/L (40-110); Anion Gap 17 mmol/L (10-20); BUN (Urea Nitrogen) 23 mg/dL (9.8-20.1); Bilirubin, Total 0.9 mg/dL (0.2-1.2); Calc. Creatinine Clearance 51 mL/min (70-130); Calcium 8.8 mg/dL (7.8-10.44); Carbon Dioxide 25 mmol/L (23-31); Chloride 97 mmol/L (98-107); Estimated GFR-MDRD 54; Globulin 2.7 g/dL (2.4-3.5); Glucose 235 mg/dL (83-110); Potassium 4.7 mmol/L (3.5-5.1); Protein, Total 5.8 g/dL (6.0-8.3); Sodium 134 mmol/L (136-145)
[2020-01-16] MEDS: ALPRAZolam 0.5 MG TAB PO PRN (19:42)
[2020-01-16] MEDS: Lisinopril 10 MG TAB PO SCH (20:15)
[2020-01-16] MEDS: Simvastatin 5 MG TAB PO SCH (20:15)
[2020-01-16] MEDS: Citalopram 20 MG TAB PO SCH (20:16)
[2020-01-16] MEDS: Lantus 1000 UNITS/10 ML VIAL SC SCH (20:17)
[2020-01-16] MEDS: Sulfameth/Trimethoprim DS 800-160mg TAB PO SCH (20:40)
[2020-01-17] MEDS: Levothyroxine Sodium 25 MCG TAB PO SCH (04:19)
[2020-01-17] MEDS: Acetaminophen 500 MG TAB PO PRN ×3 (04:19→21:42)
[2020-01-17] MEDS: traMADol HCl 50 MG TAB PO PRN ×2 (06:15→14:00)
[2020-01-17] MEDS: Sulfameth/Trimethoprim DS 800-160mg TAB PO SCH ×2 (08:42→21:34)
[2020-01-17] MEDS: Aspirin 81 mg Enteric Coated Tablet PO SCH ×2 (08:42→21:32)
[2020-01-17] MEDS: Cholecalciferol 1,000 UNITS (25 MCG) TAB PO SCH (08:43)
[2020-01-17] MEDS: metFORMIN 500 MG TAB PO SCH (08:44)
[2020-01-17] MEDS: Ferrous Sulfate 325 MG TAB PO SCH ×2 (08:44→17:01)
[2020-01-17] MEDS: Ascorbic Acid 500 mg Chewable Tablet PO SCH (08:44)
[2020-01-17] MEDS: Cyclobenzaprine 10 MG TAB PO PRN (08:50)
[2020-01-17] MEDS: ALPRAZolam 0.5 MG TAB PO PRN (10:06)
[2020-01-17] MEDS ORDERED: LIRAGLUTIDE 18 MG/3 ML SC SCH (10:30)
[2020-01-17] MEDS: HumaLOG 300 UNITS/3 ML VIAL SC PRN ×2 (12:22→17:54)
[2020-01-17] MEDS: Lisinopril 10 MG TAB PO SCH (21:33)
[2020-01-17] MEDS: Simvastatin 5 MG TAB PO SCH (21:33)
[2020-01-17] MEDS: Citalopram 20 MG TAB PO SCH (21:33)
[2020-01-17] MEDS: Lantus 1000 UNITS/10 ML VIAL SC SCH (21:34)
[2020-01-18] MEDS: Levothyroxine Sodium 25 MCG TAB PO SCH (04:16)
[2020-01-18] MEDS: traMADol HCl 50 MG TAB PO PRN ×2 (04:16→18:16)
[2020-01-18] MEDS: LIRAGLUTIDE 18 MG/3 ML SC SCH (09:01)
[2020-01-18] MEDS: Sulfameth/Trimethoprim DS 800-160mg TAB PO SCH ×2 (09:04→20:47)
[2020-01-18] MEDS: Senokot S 8.6-50 MG TAB PO PRN (09:04)
[2020-01-18] MEDS: Cholecalciferol 1,000 UNITS (25 MCG) TAB PO SCH (09:05)
[2020-01-18] MEDS: Aspirin 81 mg Enteric Coated Tablet PO SCH ×2 (09:06→20:48)
[2020-01-18] MEDS: Ascorbic Acid 500 mg Chewable Tablet PO SCH (09:07)
[2020-01-18] MEDS: metFORMIN 500 MG TAB PO SCH (09:07)
[2020-01-18] MEDS: Ferrous Sulfate 325 MG TAB PO SCH ×2 (09:07→18:13)
[2020-01-18] MEDS: Cyclobenzaprine 10 MG TAB PO PRN ×2 (09:50→19:09)
[2020-01-18] MEDS: Acetaminophen 500 MG TAB PO PRN ×2 (09:50→19:09)
[2020-01-18] MEDS: ALPRAZolam 0.5 MG TAB PO PRN (19:40)
[2020-01-18] MEDS: Gabapentin 100 MG CAP PO PRN (19:40)
[2020-01-18] MEDS: Citalopram 20 MG TAB PO SCH (20:48)
[2020-01-18] MEDS: Simvastatin 5 MG TAB PO SCH (20:48)
[2020-01-18] MEDS: Lisinopril 10 MG TAB PO SCH (20:48)
[2020-01-18] MEDS: Lantus 1000 UNITS/10 ML VIAL SC SCH (20:48)
[2020-01-19] MEDS: traMADol HCl 50 MG TAB PO PRN ×2 (04:58→15:26)
[2020-01-19] MEDS: Levothyroxine Sodium 25 MCG TAB PO SCH (05:00)
[2020-01-19] MEDS: Aspirin 81 mg Enteric Coated Tablet PO SCH ×2 (08:58→20:31)
[2020-01-19] MEDS: Ascorbic Acid 500 mg Chewable Tablet PO SCH (08:58)
[2020-01-19] MEDS: Sulfameth/Trimethoprim DS 800-160mg TAB PO SCH ×2 (08:58→20:33)
[2020-01-19] MEDS: Ferrous Sulfate 325 MG TAB PO SCH ×2 (08:59→15:27)
[2020-01-19] MEDS: metFORMIN 500 MG TAB PO SCH (08:59)
[2020-01-19] MEDS: Cholecalciferol 1,000 UNITS (25 MCG) TAB PO SCH (08:59)
[2020-01-19] MEDS: Acetaminophen 500 MG TAB PO PRN ×2 (09:06→16:13)
[2020-01-19] MEDS: Gabapentin 100 MG CAP PO PRN (09:06)
[2020-01-19] MEDS: LIRAGLUTIDE 18 MG/3 ML SC SCH (09:08)
[2020-01-19] MEDS: Senokot S 8.6-50 MG TAB PO PRN (15:31)
[2020-01-19] MEDS: Cyclobenzaprine 10 MG TAB PO PRN (16:06)
[2020-01-19] MEDS: Lantus 1000 UNITS/10 ML VIAL SC SCH (20:30)
[2020-01-19] MEDS: Simvastatin 5 MG TAB PO SCH (20:31)
[2020-01-19] MEDS: Lisinopril 10 MG TAB PO SCH (20:32)
[2020-01-19] MEDS: Citalopram 20 MG TAB PO SCH (20:32)
[2020-01-20] MEDS: Levothyroxine Sodium 25 MCG TAB PO SCH (05:28)
[2020-01-20] MEDS: Cholecalciferol 1,000 UNITS (25 MCG) TAB PO SCH (08:34)
[2020-01-20] MEDS: traMADol HCl 50 MG TAB PO PRN ×2 (08:35→15:27)
[2020-01-20] MEDS: Aspirin 81 mg Enteric Coated Tablet PO SCH ×2 (08:36→20:24)
[2020-01-20] MEDS: Sulfameth/Trimethoprim DS 800-160mg TAB PO SCH ×2 (08:36→20:23)
[2020-01-20] MEDS: Cyclobenzaprine 10 MG TAB PO PRN ×3 (08:36→20:29)
[2020-01-20] MEDS: Ferrous Sulfate 325 MG TAB PO SCH ×2 (08:36→15:28)
[2020-01-20] MEDS: Ascorbic Acid 500 mg Chewable Tablet PO SCH (08:37)
[2020-01-20] MEDS: metFORMIN 500 MG TAB PO SCH (08:37)
[2020-01-20] MEDS: LIRAGLUTIDE 18 MG/3 ML SC SCH (08:41)
[2020-01-20] MEDS: Ondansetron ODT 4 MG TAB PO PRN (09:45)
[2020-01-20] MEDS: Acetaminophen 500 MG TAB PO PRN ×2 (14:22→20:29)
[2020-01-20] MEDS: Gabapentin 100 MG CAP PO PRN (15:28)
[2020-01-20] MEDS: Lisinopril 10 MG TAB PO SCH (20:23)
[2020-01-20] MEDS: Citalopram 20 MG TAB PO SCH (20:23)
[2020-01-20] MEDS: Simvastatin 5 MG TAB PO SCH (20:24)
[2020-01-20] MEDS: Lantus 1000 UNITS/10 ML VIAL SC SCH (20:25)
[2020-01-21] MEDS: Levothyroxine Sodium 25 MCG TAB PO SCH (05:23)
[2020-01-21] MEDS: Acetaminophen 500 MG TAB PO PRN ×2 (05:29→18:50)
[2020-01-21] MEDS: Cholecalciferol 1,000 UNITS (25 MCG) TAB PO SCH (08:34)
[2020-01-21] MEDS: Aspirin 81 mg Enteric Coated Tablet PO SCH ×2 (08:36→20:35)
[2020-01-21] MEDS: Ascorbic Acid 500 mg Chewable Tablet PO SCH (08:36)
[2020-01-21] MEDS: metFORMIN 500 MG TAB PO SCH (08:36)
[2020-01-21] MEDS: Ferrous Sulfate 325 MG TAB PO SCH ×2 (08:36→18:47)
[2020-01-21] MEDS: LIRAGLUTIDE 18 MG/3 ML SC SCH (08:36)
[2020-01-21] MEDS: Sulfameth/Trimethoprim DS 800-160mg TAB PO SCH ×2 (08:36→20:34)
[2020-01-21] MEDS: Cyclobenzaprine 10 MG TAB PO PRN ×2 (08:41→18:50)
[2020-01-21] MEDS: Gabapentin 100 MG CAP PO PRN (12:45)
[2020-01-21] MEDS: traMADol HCl 50 MG TAB PO PRN ×2 (12:48→20:32)
[2020-01-21] MEDS: Simvastatin 5 MG TAB PO SCH (20:34)
[2020-01-21] MEDS: Citalopram 20 MG TAB PO SCH (20:34)
[2020-01-21] MEDS: Lisinopril 10 MG TAB PO SCH (20:34)
[2020-01-21] MEDS: Lantus 1000 UNITS/10 ML VIAL SC SCH (20:35)
[2020-01-21] MEDS: ALPRAZolam 0.5 MG TAB PO PRN (21:45)
[2020-01-22] MEDS: Levothyroxine Sodium 25 MCG TAB PO SCH (05:23)
[2020-01-22] MEDS: LIRAGLUTIDE 18 MG/3 ML SC SCH (09:10)
[2020-01-22] MEDS: Ferrous Sulfate 325 MG TAB PO SCH ×2 (09:14→16:29)
[2020-01-22] MEDS: Cholecalciferol 1,000 UNITS (25 MCG) TAB PO SCH (09:14)
[2020-01-22] MEDS: Ascorbic Acid 500 mg Chewable Tablet PO SCH (09:15)
[2020-01-22] MEDS: Aspirin 81 mg Enteric Coated Tablet PO SCH ×2 (09:15→21:03)
[2020-01-22] MEDS: metFORMIN 500 MG TAB PO SCH (09:15)
[2020-01-22] MEDS: Sulfameth/Trimethoprim DS 800-160mg TAB PO SCH ×2 (09:15→21:01)
[2020-01-22] MEDS: Gabapentin 100 MG CAP PO PRN (13:00)
[2020-01-22] MEDS: traMADol HCl 50 MG TAB PO PRN ×2 (13:00→21:07)
[2020-01-22] MEDS: Citalopram 20 MG TAB PO SCH (21:01)
[2020-01-22] MEDS: Simvastatin 5 MG TAB PO SCH (21:02)
[2020-01-22] MEDS: Lisinopril 10 MG TAB PO SCH (21:02)
[2020-01-22] MEDS: ALPRAZolam 0.5 MG TAB PO PRN (21:09)
[2020-01-22] MEDS: Lantus 1000 UNITS/10 ML VIAL SC SCH (21:11)
[2020-01-23] MEDS: Levothyroxine Sodium 25 MCG TAB PO SCH (05:41)
[2020-01-23] MEDS: Ascorbic Acid 500 mg Chewable Tablet PO SCH (08:08)
[2020-01-23] MEDS: metFORMIN 500 MG TAB PO SCH (08:09)
[2020-01-23] MEDS: Ferrous Sulfate 325 MG TAB PO SCH ×2 (08:09→17:06)
[2020-01-23] MEDS: Sulfameth/Trimethoprim DS 800-160mg TAB PO SCH ×2 (08:09→20:12)
[2020-01-23] MEDS: Cholecalciferol 1,000 UNITS (25 MCG) TAB PO SCH (08:09)
[2020-01-23] MEDS: Aspirin 81 mg Enteric Coated Tablet PO SCH ×2 (08:10→20:11)
[2020-01-23] MEDS: traMADol HCl 50 MG TAB PO PRN ×2 (08:19→20:13)
[2020-01-23] MEDS: LIRAGLUTIDE 18 MG/3 ML SC SCH (09:18)
[2020-01-23] MEDS: Acetaminophen 500 MG TAB PO PRN (12:35)
[2020-01-23] MEDS: Citalopram 20 MG TAB PO SCH (20:11)
[2020-01-23] MEDS: Simvastatin 5 MG TAB PO SCH (20:12)
[2020-01-23] MEDS: Lisinopril 10 MG TAB PO SCH (20:12)
[2020-01-23] MEDS: ALPRAZolam 0.5 MG TAB PO PRN (20:12)
[2020-01-23] MEDS: Lantus 1000 UNITS/10 ML VIAL SC SCH (20:18)
[2020-01-23] MEDS: Cyclobenzaprine 10 MG TAB PO PRN (22:18)
[2020-01-23 22:41] LABS: Anion Gap 16 mmol/L (10-20); BUN (Urea Nitrogen) 26 mg/dL (9.8-20.1); Calc. Creatinine Clearance 39 mL/min (70-130); Calcium 9.3 mg/dL (7.8-10.44); Carbon Dioxide 24 mmol/L (23-31); Chloride 99 mmol/L (98-107); Estimated GFR-MDRD 43; Glucose 60 mg/dL (83-110); Potassium 5.2 mmol/L (3.5-5.1); Sodium 134 mmol/L (136-145)
[2020-01-23 22:59] LABS: Band 17 % (5-11); Eosinophils 5 % (0-10); Hemoglobin 8.5 g/dL (12.0-16.0); Lymphocytes 21 % (21-51); MDiff Complete? YES; Mean Corpuscular HGB CONC 32.4 g/dL (32.0-36.0); Mean Corpuscular Hemoglobin 31.9 pg (27.0-31.0); Mean Corpuscular Volume 98.4 fL (78.0-98.0); Monocytes 8 % (0-10); Neutrophil 44 % (42-75); Platelet Count 417 thou/uL (130-400); Platelet Morphology Comment Appears Adequate; Polychromasia SLIGHT = 2-3 cells (100X) (0-2/hpf); Reactive Lymphocytes 5 % (0-10); Red Blood Cell (RBC) Count 2.66 mill/uL (4.20-5.40); White Blood Cell (WBC) Count 13.4 thou/uL (4.8-10.8)
[2020-01-24] MEDS: traMADol HCl 50 MG TAB PO PRN (04:51)
[2020-01-24] MEDS: Levothyroxine Sodium 25 MCG TAB PO SCH (04:51)
[2020-01-24 05:26] LABS: #Basophils 0.1 thou/uL (0.0-0.2); #Eosinphils 0.4 thou/uL (0.0-0.7); #Lymphocytes 2.8 thou/uL (1.20-3.40); #Monocytes 0.8 thou/uL (0.11-0.59); #Neutrophils 7.2 thou/uL (1.40-6.50); %Basophils 1.2 % (0.0-1.0); %Eosinophils 3.8 % (0.0-10.0); %Lymphocytes 24.6 % (21.0-51.0); %Monocytes 6.9 % (0.0-10.0); %Neutrophils 63.5 % (42.0-75.0); Hemoglobin 9.1 g/dL (12.0-16.0); Mean Corpuscular HGB CONC 30.7 g/dL (32.0-36.0); Mean Corpuscular Hemoglobin 31.1 pg (27.0-31.0); Mean Platelet Volume 6.5 fL (7.4-10.4); Platelet Count 437 thou/uL (130-400); RBC Distribution Width 15.1 % (11.5-14.5); Red Blood Cell (RBC) Count 2.93 mill/uL (4.20-5.40); White Blood Cell (WBC) Count 11.3 thou/uL (4.8-10.8)
[2020-01-24 05:38] LABS: Anion Gap 16 mmol/L (10-20); BUN (Urea Nitrogen) 23 mg/dL (9.8-20.1); Calc. Creatinine Clearance 42 mL/min (70-130); Calcium 9.5 mg/dL (7.8-10.44); Carbon Dioxide 24 mmol/L (23-31); Chloride 98 mmol/L (98-107); Estimated GFR-MDRD 47; Glucose 69 mg/dL (83-110); Potassium 4.9 mmol/L (3.5-5.1); Sodium 133 mmol/L (136-145)
[2020-01-24] MEDS: Aspirin 81 mg Enteric Coated Tablet PO SCH ×2 (09:33→20:36)
[2020-01-24] MEDS: Cholecalciferol 1,000 UNITS (25 MCG) TAB PO SCH (09:33)
[2020-01-24] MEDS: metFORMIN 500 MG TAB PO SCH (09:34)
[2020-01-24] MEDS: Ascorbic Acid 500 mg Chewable Tablet PO SCH (09:34)
[2020-01-24] MEDS: Sulfameth/Trimethoprim DS 800-160mg TAB PO SCH ×2 (09:34→20:36)
[2020-01-24] MEDS: Ferrous Sulfate 325 MG TAB PO SCH ×2 (09:34→16:49)
[2020-01-24] MEDS: LIRAGLUTIDE 18 MG/3 ML SC SCH (09:36)
[2020-01-24 11:58] VITALS: BMI 24.5
[2020-01-24] MEDS: Cyclobenzaprine 10 MG TAB PO PRN ×2 (14:41→20:41)
[2020-01-24] MEDS: Acetaminophen 500 MG TAB PO PRN ×2 (14:42→20:41)
[2020-01-24] MEDS: Lantus 1000 UNITS/10 ML VIAL SC SCH (20:35)
[2020-01-24] MEDS: Simvastatin 5 MG TAB PO SCH (20:36)
[2020-01-24] MEDS: Lisinopril 10 MG TAB PO SCH (20:36)
[2020-01-24] MEDS: Citalopram 20 MG TAB PO SCH (20:37)
[2020-01-24] MEDS: ALPRAZolam 0.5 MG TAB PO PRN (20:41)
[2020-01-25] MEDS: traMADol HCl 50 MG TAB PO PRN ×3 (00:31→22:02)
[2020-01-25] MEDS: Levothyroxine Sodium 25 MCG TAB PO SCH (05:15)
[2020-01-25] MEDS: Aspirin 81 mg Enteric Coated Tablet PO SCH ×2 (08:32→20:31)
[2020-01-25] MEDS: Cholecalciferol 1,000 UNITS (25 MCG) TAB PO SCH (08:33)
[2020-01-25] MEDS: Sulfameth/Trimethoprim DS 800-160mg TAB PO SCH ×2 (08:34→20:31)
[2020-01-25] MEDS: Ferrous Sulfate 325 MG TAB PO SCH ×2 (08:34→17:11)
[2020-01-25] MEDS: Ascorbic Acid 500 mg Chewable Tablet PO SCH (08:34)
[2020-01-25] MEDS: metFORMIN 500 MG TAB PO SCH (08:34)
[2020-01-25] MEDS: LIRAGLUTIDE 18 MG/3 ML SC SCH (08:36)
[2020-01-25] MEDS: Polyethylene Glycol 3350 17 GM Packet PO PRN (08:38)
[2020-01-25] MEDS: Cyclobenzaprine 10 MG TAB PO PRN ×2 (11:13→20:30)
[2020-01-25] MEDS: ALPRAZolam 0.5 MG TAB PO PRN (20:30)
[2020-01-25] MEDS: Simvastatin 5 MG TAB PO SCH (20:31)
[2020-01-25] MEDS: Lantus 1000 UNITS/10 ML VIAL SC SCH (20:32)
[2020-01-25] MEDS: Citalopram 20 MG TAB PO SCH (20:32)
[2020-01-25] MEDS: Lisinopril 10 MG TAB PO SCH (21:11)
[2020-01-25] MEDS: Acetaminophen 500 MG TAB PO PRN (23:55)
[2020-01-26] MEDS: Levothyroxine Sodium 25 MCG TAB PO SCH (05:07)
[2020-01-26] MEDS: Cholecalciferol 1,000 UNITS (25 MCG) TAB PO SCH (08:55)
[2020-01-26] MEDS: Sulfameth/Trimethoprim DS 800-160mg TAB PO SCH ×2 (08:56→20:50)
[2020-01-26] MEDS: Ferrous Sulfate 325 MG TAB PO SCH ×2 (08:56→18:37)
[2020-01-26] MEDS: Ascorbic Acid 500 mg Chewable Tablet PO SCH (08:56)
[2020-01-26] MEDS: Aspirin 81 mg Enteric Coated Tablet PO SCH ×2 (08:56→20:50)
[2020-01-26] MEDS: metFORMIN 500 MG TAB PO SCH (08:56)
[2020-01-26] MEDS: LIRAGLUTIDE 18 MG/3 ML SC SCH (08:57)
[2020-01-26] MEDS: ALPRAZolam 0.5 MG TAB PO PRN (13:02)
[2020-01-26] MEDS: Ondansetron ODT 4 MG TAB PO PRN (18:36)
[2020-01-26] MEDS: Acetaminophen 500 MG TAB PO PRN (20:01)
[2020-01-26] MEDS: Cyclobenzaprine 10 MG TAB PO PRN (20:02)
[2020-01-26] MEDS: Gabapentin 100 MG CAP PO PRN (20:49)
[2020-01-26] MEDS: traMADol HCl 50 MG TAB PO PRN (20:49)
[2020-01-26] MEDS: Simvastatin 5 MG TAB PO SCH (20:50)
[2020-01-26] MEDS: Citalopram 20 MG TAB PO SCH (20:50)
[2020-01-26] MEDS: Lisinopril 10 MG TAB PO SCH (20:50)
[2020-01-26] MEDS: Lantus 1000 UNITS/10 ML VIAL SC SCH (20:51)
[2020-01-27] MEDS: Levothyroxine Sodium 25 MCG TAB PO SCH (05:05)
[2020-01-27] MEDS: LIRAGLUTIDE 18 MG/3 ML SC SCH (08:43)
[2020-01-27] MEDS: Cholecalciferol 1,000 UNITS (25 MCG) TAB PO SCH (08:49)
[2020-01-27] MEDS: Ferrous Sulfate 325 MG TAB PO SCH ×2 (08:50→17:40)
[2020-01-27] MEDS: metFORMIN 500 MG TAB PO SCH (08:50)
[2020-01-27] MEDS: Aspirin 81 mg Enteric Coated Tablet PO SCH ×2 (08:51→20:26)
[2020-01-27] MEDS: Ascorbic Acid 500 mg Chewable Tablet PO SCH (08:51)
[2020-01-27] MEDS: Gabapentin 100 MG CAP PO PRN ×2 (08:59→20:26)
[2020-01-27] MEDS: traMADol HCl 50 MG TAB PO PRN ×2 (09:00→20:27)
[2020-01-27] MEDS: Cyclobenzaprine 10 MG TAB PO PRN (13:51)
[2020-01-27] MEDS: Acetaminophen 500 MG TAB PO PRN (13:51)
[2020-01-27] MEDS: Lisinopril 10 MG TAB PO SCH (20:26)
[2020-01-27] MEDS: Simvastatin 5 MG TAB PO SCH (20:26)
[2020-01-27] MEDS: Citalopram 20 MG TAB PO SCH (20:26)
[2020-01-27] MEDS: Lantus 1000 UNITS/10 ML VIAL SC SCH (20:28)
[2020-01-27] MEDS: ALPRAZolam 0.5 MG TAB PO PRN (22:56)
[2020-01-28] MEDS: Cyclobenzaprine 10 MG TAB PO PRN ×3 (00:20→22:51)
[2020-01-28] MEDS: Acetaminophen 500 MG TAB PO PRN ×3 (00:20→13:19)
[2020-01-28] MEDS: Levothyroxine Sodium 25 MCG TAB PO SCH (05:35)
[2020-01-28] MEDS: traMADol HCl 50 MG TAB PO PRN ×2 (07:49→13:19)
[2020-01-28] MEDS: Cholecalciferol 1,000 UNITS (25 MCG) TAB PO SCH (09:24)
[2020-01-28] MEDS: Aspirin 81 mg Enteric Coated Tablet PO SCH ×2 (09:24→21:11)
[2020-01-28] MEDS: Ferrous Sulfate 325 MG TAB PO SCH ×2 (09:24→18:14)
[2020-01-28] MEDS: Ascorbic Acid 500 mg Chewable Tablet PO SCH (09:24)
[2020-01-28] MEDS: LIRAGLUTIDE 18 MG/3 ML SC SCH (10:04)
[2020-01-28] MEDS: metFORMIN 500 MG TAB PO SCH (10:04)
[2020-01-28] MEDS: Gabapentin 100 MG CAP PO PRN (10:12)
[2020-01-28] MEDS: Simvastatin 5 MG TAB PO SCH (21:12)
[2020-01-28] MEDS: Citalopram 20 MG TAB PO SCH (21:12)
[2020-01-28] MEDS: Gabapentin 300 MG CAP PO SCH (21:12)
[2020-01-28] MEDS: Lantus 1000 UNITS/10 ML VIAL SC SCH (21:12)
[2020-01-28] MEDS: Lisinopril 10 MG TAB PO SCH (21:13)
[2020-01-29] MEDS ORDERED: Levothyroxine Sodium 25 MCG TAB ONE (05:04)
[2020-01-29] MEDS ORDERED: HYDROcodone/Acetaminophen 5/325 mg Tablet ONE (05:14)
[2020-01-29 08:10] LABS: Hemoglobin 8.8 g/dL (12.0-16.0); Platelet Count 444 thou/uL (130-400)
[2020-01-29] MEDS ORDERED: Enoxaparin Sodium 30 MG/0.3 ML SYRINGE SC SCH (09:00)
[2020-01-29] MEDS: Aspirin 81 mg Enteric Coated Tablet PO SCH ×2 (09:37→20:48)
[2020-01-29] MEDS: Cholecalciferol 1,000 UNITS (25 MCG) TAB PO SCH (09:37)
[2020-01-29] MEDS: Ascorbic Acid 500 mg Chewable Tablet PO SCH (09:37)
[2020-01-29] MEDS: Gabapentin 100 MG CAP PO SCH ×3 (09:38→16:03)
[2020-01-29] MEDS: Calcium Carbonate 500 MG TAB PO SCH ×2 (09:38→18:36)
[2020-01-29] MEDS: metFORMIN 500 MG TAB PO SCH (09:38)
[2020-01-29] MEDS: Ferrous Sulfate 325 MG TAB PO SCH ×2 (09:38→18:36)
[2020-01-29] MEDS: Enoxaparin Sodium 40 MG/0.4 ML SYRINGE SC SCH (09:39)
[2020-01-29] MEDS: LIRAGLUTIDE 18 MG/3 ML SC SCH (09:39)
[2020-01-29] MEDS: Levothyroxine Sodium 25 MCG TAB PO SCH (18:15)
[2020-01-29] MEDS: Lantus 1000 UNITS/10 ML VIAL SC SCH (20:47)
[2020-01-29] MEDS: Simvastatin 5 MG TAB PO SCH (20:47)
[2020-01-29] MEDS: Gabapentin 300 MG CAP PO SCH (20:48)
[2020-01-29] MEDS: Citalopram 20 MG TAB PO SCH (20:48)
[2020-01-29] MEDS: Lisinopril 10 MG TAB PO SCH (20:50)
[2020-01-29] MEDS: HYDROcodone/Acetaminophen 5/325 mg Tablet PO PRN (21:01)
[2020-01-30] MEDS: Levothyroxine Sodium 25 MCG TAB PO SCH (06:38)
[2020-01-30] MEDS: Enoxaparin Sodium 40 MG/0.4 ML SYRINGE SC SCH (09:12)
[2020-01-30] MEDS: Cholecalciferol 1,000 UNITS (25 MCG) TAB PO SCH (09:13)
[2020-01-30] MEDS: LIRAGLUTIDE 18 MG/3 ML SC SCH (09:13)
[2020-01-30] MEDS: Aspirin 81 mg Enteric Coated Tablet PO SCH ×2 (09:14→20:19)
[2020-01-30] MEDS: Ascorbic Acid 500 mg Chewable Tablet PO SCH (09:15)
[2020-01-30] MEDS: metFORMIN 500 MG TAB PO SCH (09:15)
[2020-01-30] MEDS: Calcium Carbonate 500 MG TAB PO SCH ×2 (09:15→17:45)
[2020-01-30] MEDS: Ferrous Sulfate 325 MG TAB PO SCH ×2 (09:15→17:45)
[2020-01-30] MEDS: Gabapentin 100 MG CAP PO SCH ×2 (09:15→14:16)
[2020-01-30] MEDS: Lantus 1000 UNITS/10 ML VIAL SC SCH (20:19)
[2020-01-30] MEDS: Citalopram 20 MG TAB PO SCH (20:19)
[2020-01-30] MEDS: Simvastatin 5 MG TAB PO SCH (20:20)
[2020-01-30] MEDS: Gabapentin 300 MG CAP PO SCH (20:20)
[2020-01-30] MEDS: Lisinopril 10 MG TAB PO SCH (20:20)
[2020-01-31 04:58] LABS: Hemoglobin 8.7 g/dL (12.0-16.0); Platelet Count 395 thou/uL (130-400)
[2020-01-31] MEDS: Levothyroxine Sodium 25 MCG TAB PO SCH (05:31)
[2020-01-31] MEDS: Enoxaparin Sodium 40 MG/0.4 ML SYRINGE SC SCH (08:16)
[2020-01-31] MEDS: LIRAGLUTIDE 18 MG/3 ML SC SCH (08:17)
[2020-01-31] MEDS: Cholecalciferol 1,000 UNITS (25 MCG) TAB PO SCH (08:20)
[2020-01-31] MEDS: Gabapentin 100 MG CAP PO SCH ×3 (08:20→11:27)
[2020-01-31] MEDS: metFORMIN 500 MG TAB PO SCH (08:22)
[2020-01-31] MEDS: Ascorbic Acid 500 mg Chewable Tablet PO SCH (08:22)
[2020-01-31] MEDS: Ferrous Sulfate 325 MG TAB PO SCH ×2 (08:23→16:47)
[2020-01-31] MEDS: Calcium Carbonate 500 MG TAB PO SCH ×2 (08:23→16:47)
[2020-01-31] MEDS: HYDROcodone/Acetaminophen 5/325 mg Tablet PO PRN (08:24)
[2020-01-31] MEDS: Aspirin 81 mg Enteric Coated Tablet PO SCH ×2 (08:28→20:20)
[2020-01-31] MEDS ORDERED: traMADol HCl 50 MG TAB PO PRN (14:06)
[2020-01-31] MEDS ORDERED: Acetaminophen 500 MG TAB PO PRN ×2 (14:06→14:07)
[2020-01-31] MEDS: HumaLOG 300 UNITS/3 ML VIAL SC PRN (17:27)
[2020-01-31] MEDS: Cyclobenzaprine 10 MG TAB PO PRN (20:19)
[2020-01-31] MEDS: Simvastatin 5 MG TAB PO SCH (20:20)
[2020-01-31] MEDS: Gabapentin 300 MG CAP PO SCH (20:20)
[2020-01-31] MEDS: Lisinopril 10 MG TAB PO SCH (20:20)
[2020-01-31] MEDS: Citalopram 20 MG TAB PO SCH (20:21)
[2020-01-31] MEDS: ALPRAZolam 0.5 MG TAB PO PRN (20:21)
[2020-01-31] MEDS: Lantus 1000 UNITS/10 ML VIAL SC SCH (20:32)
[2020-02-01 00:09] LABS: Clarity Slightly Cloudy (Clear); Specific Gravity, Urine 1.015 (1.005-1.030)
[2020-02-01 00:10] LABS: Bilirubin Negative (Negative); Blood, Urine Negative (Negative); Glucose, Urine (Dipstick) Negative (Negative); Ketone, Urine Negative (Negative); Leukocyte Small (Negative); Nitrite Positive (Negative); Protein, Urine (Dipstick) Negative (Neg-Trace); Urobilinogen 0.2 mg/dL (Less than 2); pH, Urine 8.5 (5.0-9.0)
[2020-02-01 00:27] LABS: Bacteria/HPF 2+ HPF (None Seen); RBC/HPF 0-3 HPF (0-3); Squamous Epithelial 0-3 HPF (0-3)
[2020-02-01] MEDS: Levothyroxine Sodium 25 MCG TAB PO SCH (05:31)
[2020-02-01] MEDS: Polyethylene Glycol 3350 17 GM Packet PO PRN (08:27)
[2020-02-01] MEDS: Enoxaparin Sodium 40 MG/0.4 ML SYRINGE SC SCH (08:27)
[2020-02-01] MEDS: Cholecalciferol 1,000 UNITS (25 MCG) TAB PO SCH (08:28)
[2020-02-01] MEDS: HYDROcodone/Acetaminophen 5/325 mg Tablet PO PRN (08:28)
[2020-02-01] MEDS: Aspirin 81 mg Enteric Coated Tablet PO SCH ×2 (08:30→20:16)
[2020-02-01] MEDS: Ferrous Sulfate 325 MG TAB PO SCH ×2 (08:30→16:47)
[2020-02-01] MEDS: Ascorbic Acid 500 mg Chewable Tablet PO SCH (08:31)
[2020-02-01] MEDS: Calcium Carbonate 500 MG TAB PO SCH ×2 (08:31→16:47)
[2020-02-01] MEDS: Gabapentin 100 MG CAP PO SCH ×2 (08:31→11:51)
[2020-02-01] MEDS: metFORMIN 500 MG TAB PO SCH ×2 (08:32→16:47)
[2020-02-01] MEDS: LIRAGLUTIDE 18 MG/3 ML SC SCH (08:32)
[2020-02-01] MEDS: Gabapentin 300 MG CAP PO SCH (20:16)
[2020-02-01] MEDS: Citalopram 20 MG TAB PO SCH (20:16)
[2020-02-01] MEDS: Lisinopril 10 MG TAB PO SCH (20:16)
[2020-02-01] MEDS: Sulfameth/Trimethoprim DS 800-160mg TAB PO SCH (20:16)
[2020-02-01] MEDS: Simvastatin 5 MG TAB PO SCH (20:17)
[2020-02-02] MEDS: ALPRAZolam 0.5 MG TAB PO PRN (00:11)
[2020-02-02] MEDS: HYDROcodone/Acetaminophen 5/325 mg Tablet PO PRN ×2 (01:02→08:40)
[2020-02-02] MEDS: Levothyroxine Sodium 25 MCG TAB PO SCH (05:18)
[2020-02-02 05:27] LABS: Hemoglobin 7.9 g/dL (12.0-16.0); Platelet Count 333 thou/uL (130-400)
[2020-02-02] MEDS: Enoxaparin Sodium 40 MG/0.4 ML SYRINGE SC SCH (08:15)
[2020-02-02] MEDS: Sulfameth/Trimethoprim DS 800-160mg TAB PO SCH ×2 (08:17→20:35)
[2020-02-02] MEDS: Aspirin 81 mg Enteric Coated Tablet PO SCH ×2 (08:18→20:34)
[2020-02-02] MEDS: metFORMIN 500 MG TAB PO SCH ×2 (08:18→16:55)
[2020-02-02] MEDS: Gabapentin 100 MG CAP PO SCH ×2 (08:19→11:40)
[2020-02-02] MEDS: Ferrous Sulfate 325 MG TAB PO SCH ×2 (08:19→16:55)
[2020-02-02] MEDS: Cholecalciferol 1,000 UNITS (25 MCG) TAB PO SCH (08:19)
[2020-02-02] MEDS: Ascorbic Acid 500 mg Chewable Tablet PO SCH (08:21)
[2020-02-02] MEDS: Calcium Carbonate 500 MG TAB PO SCH ×2 (08:21→16:56)
[2020-02-02] MEDS: LIRAGLUTIDE 18 MG/3 ML SC SCH (08:23)
[2020-02-02 11:37] LABS: Hemoglobin A1c 5.3 % (4.0-6.0)
[2020-02-02] MEDS: HumaLOG 300 UNITS/3 ML VIAL SC PRN (16:54)
[2020-02-02] MEDS: Simvastatin 5 MG TAB PO SCH (20:34)
[2020-02-02] MEDS: Citalopram 20 MG TAB PO SCH (20:34)
[2020-02-02] MEDS: Gabapentin 300 MG CAP PO SCH (20:35)
[2020-02-02] MEDS: Lisinopril 10 MG TAB PO SCH (20:35)
[2020-02-03] MEDS: Levothyroxine Sodium 25 MCG TAB PO SCH (06:03)
[2020-02-03] MEDS: Sulfameth/Trimethoprim DS 800-160mg TAB PO SCH ×2 (08:17→20:32)
[2020-02-03] MEDS: metFORMIN 500 MG TAB PO SCH ×2 (08:17→17:15)
[2020-02-03] MEDS: Cholecalciferol 1,000 UNITS (25 MCG) TAB PO SCH (08:18)
[2020-02-03] MEDS: Gabapentin 100 MG CAP PO SCH ×2 (08:19→12:45)
[2020-02-03] MEDS: Ferrous Sulfate 325 MG TAB PO SCH ×2 (08:19→17:16)
[2020-02-03] MEDS: Ascorbic Acid 500 mg Chewable Tablet PO SCH (08:19)
[2020-02-03] MEDS: Calcium Carbonate 500 MG TAB PO SCH ×2 (08:19→17:16)
[2020-02-03] MEDS: Aspirin 81 mg Enteric Coated Tablet PO SCH ×2 (08:19→20:32)
[2020-02-03] MEDS: Enoxaparin Sodium 40 MG/0.4 ML SYRINGE SC SCH (08:20)
[2020-02-03] MEDS: Ondansetron ODT 4 MG TAB PO PRN (08:22)
[2020-02-03] MEDS: Simvastatin 5 MG TAB PO SCH (20:31)
[2020-02-03] MEDS: Gabapentin 300 MG CAP PO SCH (20:31)
[2020-02-03] MEDS: Lisinopril 10 MG TAB PO SCH (20:32)
[2020-02-03] MEDS: Citalopram 20 MG TAB PO SCH (20:32)
[2020-02-03] MEDS: ALPRAZolam 0.5 MG TAB PO PRN (22:20)
--- NOTE | 2020-02-04 03:14 | DIS ---
DATE OF ADMISSION: 01/13/2020 DATE OF DISCHARGE: 02/04/2020 HISTORY OF PRESENT ILLNESS/HOSPITAL COURSE: 79-year-old female admitted to [facility] for continued rehab and physical therapy of Left displaced tibial plateau fracture sustained 01/07/2020 from a same-level trip fall. She subsequently underwent a closed reduction under anesthesia since her poor bone quality disqualified her for open fixation with hardware. She has a history of severe osteoporosis with a multiple past vertebral compression fractures in 2019, rheumatoid arthritis, DM type 2, hypertension, hypothyroidism, degenerative joint disease, and chronic anemia. She is nonweightbearing to left lower extremity with a long leg splint intact until fracture can heal. On 10/27/2012, she sustained a right ankle trimalleolar fracture and subsequent ORIF with hardware. Her right ankle is now deformed with minimal dorsiflexion, prominent foot drop, and rotated medially. The hardware is palpable at the lateral malleolus, and she is unable to fully bear weight on her right lower extremity. She has been referred to Ortho to address right ankle. Her Rehab is complicated and delayed by her essentially nonweightbearing status. She has had low blood sugars during the course of her stay, and her A1C was 5.3 so her Insulin and Victoza have been discontinued. She was in past on intermediate school teacher oral prednisone, but has recently been started on daily DMARD for RA. She has chronic normocytic anemia; last creatinine was 0.83. She was treated for UTI with Bactrim 1 month ago at which time the culture showed gram-negative rods, presumptive enterococcus. Her UTI symptoms returned a few days ago with positive urinalysis, and she was again started on Bactrim on 01/30; culture is pending. DIET: Diabetic, Carbohydrate Controlled ACTIVITY: Non weight bearing Left, Minimal weight bearing as tolerated Right. Mobility per WC, transfers using board and Eulogio Lift. ALLERGIES: QUINOLONES. MEDICATIONS: 1. Gabapentin 300 mg b.i.d. 2. Lisinopril 10 mg daily. 3. Citalopram 20 mg at bedtime. 4. Xanax 0.25 mg t.i.d. p.r.n. 5. Metformin 1000 mg b.i.d. 6. MiraLAX 17 g p.o. p.r.n. constipation daily. 7. Senokot two tabs p.o. b.i.d. p.r.n. constipation. 8. Flexeril 5 mg p.o. t.i.d. p.r.n. muscle spasm. 9. Simvastatin 10 mg p.o. at bedtime. 10. Feosol, ferrous sulfate 325 mg b.i.d. with meal. 11. Rinvoq 15 mg p.o. daily. 12. 81 mg enteric-coated aspirin. 13. Hydrocodone 5/325 one p.o. q.6 p.r.n. 14. Pantoprazole 40 mg. 15. Calcium carbonate 500 mg p.o. b.i.d. with meal. 16. Bactrim 1 tab p.o. b.i.d. x7 days. 17. Levothyroxine 75 mcg daily. 18. Vitamin C 500 mg p.o. daily. 19. Vitamin D3 of 5000 units p.o. daily. CODE STATUS: Full code. FOLLOWUP: She is discharged home on Home Health, with PT and OT. DME ordered includes wheelchair with removable arm rests and removable elevated long leg rests, transfer slide board, Eulogio lift, and a hospital bed. She is to follow up with PCP in 1 to 2 weeks after discharge. She will be following up with Ortho for right ankle deformity within one week of discharge. Job ID: [id number] [email or web address]
[2020-02-04] MEDS: Levothyroxine Sodium 25 MCG TAB PO SCH (05:19)
[2020-02-04 05:26] LABS: Hemoglobin 8.9 g/dL (12.0-16.0); Platelet Count 342 thou/uL (130-400)
[2020-02-04 05:43] VITALS: BP 112/53; TEMP 97.9
[2020-02-04] MEDS: Cholecalciferol 1,000 UNITS (25 MCG) TAB PO SCH (08:54)
[2020-02-04] MEDS: Ascorbic Acid 500 mg Chewable Tablet PO SCH (09:00)
[2020-02-04] MEDS: Sulfameth/Trimethoprim DS 800-160mg TAB PO SCH (09:00)
[2020-02-04] MEDS: Aspirin 81 mg Enteric Coated Tablet PO SCH (09:00)
[2020-02-04] MEDS: Calcium Carbonate 500 MG TAB PO SCH (09:01)
[2020-02-04] MEDS: metFORMIN 500 MG TAB PO SCH (09:01)
[2020-02-04] MEDS: Ferrous Sulfate 325 MG TAB PO SCH (09:01)
[2020-02-04] MEDS: Enoxaparin Sodium 40 MG/0.4 ML SYRINGE SC SCH (09:02)
[2020-02-04] MEDS: Gabapentin 100 MG CAP PO SCH ×2 (09:02→12:09)
[2020-02-04] MEDS: HumaLOG 300 UNITS/3 ML VIAL SC PRN (12:10)
[2020-02-04] MEDS: HYDROcodone/Acetaminophen 5/325 mg Tablet PO PRN (13:18)
== END 2020-02-04 14:20 | disposition home health service (06) | DRG 560 ==
LOC: BURMED 15:16
PROVIDERS: ADMIT Family Medicine; ATTEND Family Medicine
DX: S82.202D Unspecified fracture of shaft of left tibia, subsequent encounter for closed fracture with routine healing (principal); N39.0 Urinary tract infection, site not specified; E11.65 Type 2 diabetes mellitus with hyperglycemia; W01.0XXA Fall on same level from slipping, tripping and stumbling without subsequent striking against object, initial encounter; M85.88 Other specified disorders of bone density and structure, other site; M06.9 Rheumatoid arthritis, unspecified; I10 Essential (primary) hypertension; E78.5 Hyperlipidemia, unspecified; E03.9 Hypothyroidism, unspecified; D64.9 Anemia, unspecified; M19.90 Unspecified osteoarthritis, unspecified site; Z90.49 Acquired absence of other specified parts of digestive tract; Z98.890 Other specified postprocedural states; Z79.899 Other long term (current) drug therapy; Z79.82 Long term (current) use of aspirin; Z79.84 Long term (current) use of oral hypoglycemic drugs; Z88.8 Allergy status to other drugs, medicaments and biological substances; Z88.1 Allergy status to other antibiotic agents
CPT/HCPCS: 36415; 36416; 80048; 80053; 81001; 82565; 83036; 85014; 85018; 85025; 85049; 87040; 87086; J1650; J1815; Q0162